=== PATIENT | female | born 1960 | race African-American/Black ===

== ENCOUNTER 2016-12-15 10:51 | Emergency (ER) | payer OTHER ==
[~2016-12-15] VITALS: Ht 170.2 cm; Wt 91.0 kg
[~2016-12-15 10:51] MED LIST: HYDR12.529 PO; OMEP20TA80 PO
[2016-12-15 10:59] VITALS: BP 139/78
== END 2016-12-15 13:35 | disposition home or self-care (01) ==
LOC: ER 12:47
DX: L02.11 Cutaneous abscess of neck (principal); I10 Essential (primary) hypertension; E78.00 Pure hypercholesterolemia, unspecified; J45.909 Unspecified asthma, uncomplicated; Z90.710 Acquired absence of both cervix and uterus; Z88.1 Allergy status to other antibiotic agents; Z88.2 Allergy status to sulfonamides
CPT/HCPCS: 99283

== ENCOUNTER 2018-07-20 10:14 | Emergency (ER) | payer SELFPAY ==
[~2018-07-20] VITALS: Ht 170.2 cm; Wt 96.0 kg
[~2018-07-20 10:14] MED LIST changes: +OMEP20TA2 PO; -OMEP20TA80 PO
[2018-07-20] MEDS ORDERED: SODIUM CHLORIDE 0.9% 1,000 ML IV ONE (11:41)
[2018-07-20] MEDS ORDERED: MECLIZINE 25MG TABLET PO ONE (12:00)
[2018-07-20 12:03] LABS: CLARITY URINE CLEAR (CLEAR); COLOR URINE YELLOW (YELLOW); KETONES URINE NEGATIVE (NEGATIVE); LEUKOCYTE ESTERASE URINE NEGATIVE (NEGATIVE); NITRITE URINE NEGATIVE (NEGATIVE); OCCULT BLOOD URINE NEGATIVE (NEGATIVE); PH URINE 6.5 (4.5-8.0); PROTEIN URINE NEGATIVE (NEGATIVE); SPECIFIC GRAVITY URINE 1.017 (1.005-1.030)
[2018-07-20 13:20] LABS: BASOPHILS % 1.4 % (0.0-2.0); EOSINOPHILS % 1.4 % (0.0-5.0); HEMATOCRIT. 39.1 % (36.0-48.0); HEMOGLOBIN. 13.2 g/dL (12.0-16.0); LYMPHOCYTES % 41.7 % (20.0-50.0); MEAN CORPUSCULAR HEMOGLOBIN 29.7 pg (28.0-32.0); MEAN CORPUSCULAR VOLUME 88.2 fL (81.0-99.0); MEAN PLATELET VOLUME 8.7 fl (7.4-10.4); MONOCYTES % 8.5 % (2.0-8.0); PLATELET 421 x1000/uL (130-400); RED BLOOD CELL COUNT 4.43 mill/uL (4.2-5.4); RED CELL DISTRIBUTION WIDTH 13.8 % (11.6-14.6)
[2018-07-20 13:25] LABS: CHLORIDE 103 mEq/L (98-107)
[2018-07-20 13:28] LABS: ETHANOL BLOOD < 10 mg/dL
[2018-07-20 13:33] LABS: CREATINE KINASE 207 IU/L (26-192)
[2018-07-20 13:37] LABS: CREATINE KINASE MB FRACTION < 1.0 ng/mL (0.5-3.6)
[2018-07-20 13:40] LABS: INR 1.1; PROTHROMBIN TIME 10.9 sec (9.1-11.1)
[2018-07-20 14:16] LABS: *AMPHETAMINES SCREEN URINE NEGATIVE (NEGATIVE); *BARBITURATES SCREEN URINE NEGATIVE (NEGATIVE); *BENZODIAZEPINES SCREEN URINE NEGATIVE (NEGATIVE); *COCAINE SCREEN URINE NEGATIVE (NEGATIVE)
[2018-07-20 14:17] LABS: CANNABINOID URINE SCREEN NEGATIVE (NEGATIVE); METHADONE URINE SCREEN NEGATIVE (NEGATIVE); OPIATES URINE SCREEN NEGATIVE (NEGATIVE); PHENCYCLIDINE URINE SCREEN NEGATIVE (NEGATIVE)
[2018-07-20 16:16] VITALS: BP 111/55
== END 2018-07-20 16:23 | disposition home or self-care (01) ==
LOC: ER 12:26
DX: R41.0 Disorientation, unspecified (principal); R42 Dizziness and giddiness; R06.00 Dyspnea, unspecified; E78.5 Hyperlipidemia, unspecified; I10 Essential (primary) hypertension; J45.909 Unspecified asthma, uncomplicated; H53.8 Other visual disturbances; Z88.2 Allergy status to sulfonamides; Z88.1 Allergy status to other antibiotic agents; Z79.899 Other long term (current) drug therapy; Z90.710 Acquired absence of both cervix and uterus
CPT/HCPCS: 36415; 70450; 71045; 80053; 80305; 81003; 82550; 82553; 83690; 83735; 83880; 84443; 84484; 85025; 85610; 93005; 99284; G0482; J7030; J8597

== ENCOUNTER 2019-04-16 23:28 | Emergency (ER) | payer BC ==
[~2019-04-16] VITALS: Ht 170.2 cm; Wt 98.0 kg
[2019-04-17 00:10] VITALS: BP 155/81
[2019-04-17 00:45] LABS: CLARITY URINE CLEAR (CLEAR); COLOR URINE YELLOW (YELLOW); KETONES URINE NEGATIVE (NEGATIVE); LEUKOCYTE ESTERASE URINE NEGATIVE (NEGATIVE); NITRITE URINE NEGATIVE (NEGATIVE); OCCULT BLOOD URINE NEGATIVE (NEGATIVE); PH URINE 6.5 (4.5-8.0); PROTEIN URINE NEGATIVE (NEGATIVE); SPECIFIC GRAVITY URINE 1.004 (1.005-1.030)
== END 2019-04-17 04:38 | disposition left against medical advice (07) ==
LOC: ER 23:28
DX: M79.89 Other specified soft tissue disorders (principal); Z53.21 Procedure and treatment not carried out due to patient leaving prior to being seen by health care provider
CPT/HCPCS: 81003

== ENCOUNTER 2019-09-23 09:11 | Inpatient (IN) | payer BC ==
[~2019-09-23] VITALS: Ht 170.2 cm; Wt 94.8 kg
[2019-09-23] MEDS ORDERED: ASPIRIN 81MG TABLET PO ONE (10:30)
[2019-09-23] MEDS ORDERED: NITROGLYCERIN 0.4MG TABLET SL SL PRN (10:30)
[2019-09-23 10:45] LABS: BASOPHILS % 0.6 % (0.0-2.0); EOSINOPHILS % 1.5 % (0.0-5.0); HEMATOCRIT. 39.2 % (36.0-48.0); HEMOGLOBIN. 13.2 g/dL (12.0-16.0); LYMPHOCYTES % 48.3 % (20.0-50.0); MEAN CORPUSCULAR HEMOGLOBIN 29.9 pg (28.0-32.0); MEAN CORPUSCULAR VOLUME 88.7 fL (81.0-99.0); MEAN PLATELET VOLUME 8.9 fl (7.4-10.4); MONOCYTES % 6.6 % (2.0-8.0); PLATELET 348 x1000/uL (130-400); RED BLOOD CELL COUNT 4.42 mill/uL (4.2-5.4); RED CELL DISTRIBUTION WIDTH 13.9 % (11.6-14.6)
[2019-09-23 10:53] LABS: CHLORIDE 106 mEq/L (98-107)
[2019-09-23 11:18] LABS: INR 1.1; PARTIAL THROMBOPLASTIN TIME 27.2 sec (23.4-31.0); PROTHROMBIN TIME 10.9 sec (9.6-11.0)
[2019-09-23 11:27] LABS: D-DIMER 0.21 mg/L FEU (<0.50)
[2019-09-23] MEDS ORDERED: LORAZEPAM 2MG/ML CPJ IV PRN (13:00)
[2019-09-23] MEDS ORDERED: MORPHINE SULFATE 2 MG/ML CPJ (NOT FOR IM USE) IV PRN (13:00)
[2019-09-23] MEDS ORDERED: HYDROCODONE/ACETAMINOPHEN 5/325MG TABLET PO PRN (13:00)
[2019-09-23] MEDS ORDERED: MAGNESIUM/ALUMINUM HYDROXIDE/SIMETHICONE 30ML UDC PO PRN (13:00)
[2019-09-23] MEDS ORDERED: ONDANSETRON HCL 4MG/2ML INJ IV PRN (13:00)
[2019-09-23] MEDS ORDERED: CLONIDINE 0.1MG TABLET PO PRN (13:00)
[2019-09-23] MEDS ORDERED: GUAIFENESIN 200MG/10ML SUGAR FREE UDC PO PRN (13:00)
[2019-09-23] MEDS ORDERED: DIPHENHYDRAMINE 50MG/ML VIAL IV PRN (13:00)
[2019-09-23] MEDS ORDERED: IPRATROPIUM/ALBUTEROL 0.5-3(2.5)MG/3ML NEB NEB PRN (13:00)
[2019-09-23] MEDS ORDERED: DOCUSATE SODIUM 100MG CAPSULE PO PRN (13:00)
[2019-09-23] MEDS: ACETAMINOPHEN 325MG TABLET PO PRN ×2 (16:27→22:25)
[2019-09-23] MEDS ORDERED: CYCLOBENZAPRINE 10MG TABLET PO PRN (17:30)
[2019-09-23 18:41] LABS: CHLORIDE 110 mEq/L (98-107)
[2019-09-23 20:15] VITALS: BP 122/75
[2019-09-23] MEDS ORDERED: FAMOTIDINE 20MG TABLET PO SCH (21:00)
[2019-09-23] MEDS ORDERED: POTASSIUM CHLORIDE 20MEQ TABLET SR PO NR (21:00)
[2019-09-23] MEDS ORDERED: NA PHOS,M-B/NA PHOS,DI-BA ENEMA 118ML PR PRN (21:00)
[2019-09-23] MEDS: ENOXAPARIN 30MG/0.3ML SYR SUBCUT SCH (22:25)
[2019-09-23] MEDS ORDERED: AMLO10TA80 PO (23:44)
[2019-09-24] VITALS: BP 117/71
[2019-09-24] MEDS ORDERED: IRBE300T18 PO (01:47)
[2019-09-24] MEDS ORDERED: CRES10 PO (01:47)
[2019-09-24] MEDS ORDERED: FISH1CAP34 PO (01:48)
[2019-09-24] MEDS ORDERED: ALBU4TAB6 PO (01:49)
[2019-09-24] MEDS ORDERED: LORA5SOL33 PO (01:49)
[2019-09-24] MEDS ORDERED: MONT10TA24 PO (01:50)
[2019-09-24] MEDS ORDERED: ASCO100T12 PO (01:50)
[2019-09-24 06:35] LABS: BASOPHILS % 0.9 % (0.0-2.0); EOSINOPHILS % 1.7 % (0.0-5.0); HEMOGLOBIN. 12.5 g/dL (12.0-16.0); LYMPHOCYTES % 59.1 % (20.0-50.0); MEAN CORPUSCULAR HEMOGLOBIN 29.1 pg (28.0-32.0); MEAN CORPUSCULAR VOLUME 88.9 fL (81.0-99.0); MEAN PLATELET VOLUME 8.8 fl (7.4-10.4); MONOCYTES % 7.1 % (2.0-8.0); NEUTROPHILS % 31.2 % (40.0-76.0); PLATELET 351 x1000/uL (130-400); RED BLOOD CELL COUNT 4.28 mill/uL (4.2-5.4); RED CELL DISTRIBUTION WIDTH 13.5 % (11.6-14.6)
[2019-09-24 06:51] LABS: CHLORIDE 112 mEq/L (98-107)
[2019-09-24 07:00] LABS: HDL CHOLESTEROL 41 mg/dL (40-59); LDL CHOLESTEROL 141 mg/dL (5-100)
[2019-09-24 08:00] VITALS: BP 120/72
[2019-09-24] MEDS ORDERED: ASPIRIN 81MG EC TABLET PO SCH (09:00)
[2019-09-24] MEDS: ENOXAPARIN 30MG/0.3ML SYR SUBCUT SCH (09:48)
[2019-09-24 11:55] LABS: CLARITY URINE CLEAR (CLEAR); COLOR URINE YELLOW (YELLOW); KETONES URINE NEGATIVE (NEGATIVE); LEUKOCYTE ESTERASE URINE NEGATIVE (NEGATIVE); NITRITE URINE NEGATIVE (NEGATIVE); OCCULT BLOOD URINE NEGATIVE (NEGATIVE); PROTEIN URINE NEGATIVE (NEGATIVE); SPECIFIC GRAVITY URINE 1.015 (1.005-1.030)
[2019-09-24 12:00] VITALS: BP 112/65
[2019-09-24] MEDS ORDERED: TRAM50TA94 MT (14:27)
[2019-09-24 14:52] VITALS: BP 112/65
== END 2019-09-24 17:30 | disposition home or self-care (01) | DRG 206 ==
LOC: ER 09:11 → 7WST 12:47 → ENRESERV 19:23 → 7WST 09-24 00:39
PROVIDERS: ADMIT Internal Medicine; ATTEND Internal Medicine
DX: M94.0 Chondrocostal junction syndrome [Tietze] (principal); R07.89 Other chest pain; E66.9 Obesity, unspecified; E78.00 Pure hypercholesterolemia, unspecified; R73.9 Hyperglycemia, unspecified; E87.6 Hypokalemia; I11.9 Hypertensive heart disease without heart failure; J45.909 Unspecified asthma, uncomplicated; R73.03 Prediabetes; Z80.9 Family history of malignant neoplasm, unspecified; Z82.3 Family history of stroke; Z83.3 Family history of diabetes mellitus; Z90.710 Acquired absence of both cervix and uterus; Z79.899 Other long term (current) drug therapy; Z88.2 Allergy status to sulfonamides; Z88.8 Allergy status to other drugs, medicaments and biological substances; Z68.32 Body mass index [BMI] 32.0-32.9, adult
CPT/HCPCS: 36415; 71045; 80048; 80053; 80061; 81003; 83880; 84443; 84484; 85025; 85379; 86300; 86304; 93005; 93306; 93970; 94640; 99285; J1650; J7620

== ENCOUNTER 2021-11-05 16:27 | Emergency (ER) | payer BC ==
[~2021-11-05] VITALS: Ht 167.6 cm; Wt 98.0 kg
[~2021-11-05 16:27] MED LIST changes: +ALBU4TAB6 PO; +AMLO10TA80 PO; +ASCO100T12 PO; +CRES10 PO; +FISH1CAP34 PO; +IRBE300T17 PO; +LORA5SOL33 PO; +MONT10TA32 PO; +TRAM50TA94 MT
[2021-11-05 17:05] VITALS: BP 130/72
[2021-11-05] MEDS ORDERED: METOCLOPRAMIDE HCL 10MG/2ML VIAL IV ONE (17:15)
[2021-11-05] MEDS ORDERED: ACETAMINOPHEN 325MG TABLET PO ONE (17:15)
[2021-11-05] MEDS ORDERED: DIPHENHYDRAMINE 25MG CAPSULE PO ONE (17:15)
[2021-11-05 18:24] LABS: BASOPHILS % 0.3 % (0.0-2.0); EOSINOPHILS % 1.1 % (0.0-5.0); HEMOGLOBIN. 12.6 g/dL (12.0-16.0); MEAN CORPUSCULAR HEMOGLOBIN 28.4 pg (28.0-32.0); MEAN CORPUSCULAR VOLUME 85.4 fL (81.0-99.0); MEAN PLATELET VOLUME 8.7 fl (7.4-10.4); MONOCYTES % 8.7 % (2.0-8.0); NEUTROPHILS % 46.9 % (40.0-76.0); PLATELET 373 x1000/uL (130-400); RED BLOOD CELL COUNT 4.45 mill/uL (4.2-5.4); RED CELL DISTRIBUTION WIDTH 13.9 % (11.6-14.6)
[2021-11-05 18:24] LABS: *AMPHETAMINES SCREEN URINE NEGATIVE (NEGATIVE); *BARBITURATES SCREEN URINE NEGATIVE (NEGATIVE); *BENZODIAZEPINES SCREEN URINE NEGATIVE (NEGATIVE); *COCAINE SCREEN URINE NEGATIVE (NEGATIVE); METHADONE URINE SCREEN NEGATIVE (NEGATIVE)
[2021-11-05 18:25] LABS: CANNABINOID URINE SCREEN NEGATIVE (NEGATIVE); OPIATES URINE SCREEN NEGATIVE (NEGATIVE); PHENCYCLIDINE URINE SCREEN NEGATIVE (NEGATIVE)
[2021-11-05 18:27] LABS: CHLORIDE 105 mEq/L (98-107)
[2021-11-05 18:31] LABS: ETHANOL BLOOD < 10 mg/dL
[2021-11-05] MEDS ORDERED: METO-293 MT (19:49)
[2021-11-05] MEDS ORDERED: GUAI600T26 MT (19:49)
[2021-11-05] MEDS ORDERED: GUAIFENESIN 600MG ER TABLET PO ONE (20:15)
== END 2021-11-05 20:41 | disposition home or self-care (01) ==
LOC: ER 16:27
DX: G43.909 Migraine, unspecified, not intractable, without status migrainosus (principal); I10 Essential (primary) hypertension; R09.81 Nasal congestion; J45.909 Unspecified asthma, uncomplicated; E78.00 Pure hypercholesterolemia, unspecified; Z90.710 Acquired absence of both cervix and uterus; Z79.899 Other long term (current) drug therapy
CPT/HCPCS: 36415; 71045; 80053; 80305; 80320; 83880; 84484; 85025; 93005; 99285; J2765; Q0163; G0480

== ENCOUNTER 2022-03-26 19:15 | Emergency (ER) | payer BC ==
[~2022-03-26] VITALS: Ht 170.2 cm; Wt 93.0 kg
[~2022-03-26 19:15] MED LIST changes: +GUAI600T26 MT; +METO-293 MT; +MONT-39 PO; -MONT10TA32 PO; -OMEP20TA2 PO; +OMEP20TA23 PO
[2022-03-26 20:03] LABS: BASOPHILS % 1.5 % (0.0-2.0); EOSINOPHILS % 0.8 % (0.0-5.0); HEMATOCRIT. 37.6 % (36.0-48.0); HEMOGLOBIN. 12.5 g/dL (12.0-16.0); LYMPHOCYTES % 37.1 % (20.0-50.0); MEAN CORPUSCULAR HEMOGLOBIN 29.2 pg (28.0-32.0); MEAN PLATELET VOLUME 7.9 fl (7.4-10.4); MONOCYTES % 6.2 % (2.0-8.0); NEUTROPHILS % 54.4 % (40.0-76.0); PLATELET 386 x1000/uL (130-400); RED BLOOD CELL COUNT 4.27 mill/uL (4.2-5.4); RED CELL DISTRIBUTION WIDTH 13.8 % (11.6-14.6)
[2022-03-26 20:13] LABS: CHLORIDE 105 mEq/L (98-107)
[2022-03-26] MEDS ORDERED: ACETAMINOPHEN 325MG TABLET PO ONE (21:00)
[2022-03-26 22:50] VITALS: BP 140/72
== END 2022-03-26 22:55 | disposition home or self-care (01) ==
LOC: ER 19:15
DX: R07.89 Other chest pain (principal); J45.909 Unspecified asthma, uncomplicated; E78.00 Pure hypercholesterolemia, unspecified; I10 Essential (primary) hypertension; Z90.710 Acquired absence of both cervix and uterus; Z88.2 Allergy status to sulfonamides
CPT/HCPCS: 36415; 71045; 80053; 83880; 84484; 85025; 99284

== ENCOUNTER → 2024-04-17 | Day surgery (SDC) | payer BC ==
[~2024-04-17] MED LIST changes: -IRBE300T17 PO; +IRBE300T25 PO; +LIDOCAINE HCL/EPINEPHRINE 1%-EPI 1:100,000 20ML VIAL ONE; +SODIUM BICARBONATE 4% 2.4MEQ/5ML VIAL IV ONE
== END | disposition home or self-care (01) ==
LOC: RAD 09:32
PROVIDERS: ATTEND Surgery
DX: R59.0 Localized enlarged lymph nodes (principal); R59.9 Enlarged lymph nodes, unspecified; N60.01 Solitary cyst of right breast; Z79.899 Other long term (current) drug therapy; Z98.890 Other specified postprocedural states; Z80.3 Family history of malignant neoplasm of breast
CPT/HCPCS: 38505; 88305; 76942; J3490 ×2; 19083